=== PATIENT | male | born 1950 | race Two or more races ===

== ENCOUNTER 2024-08-09 00:10 | Inpatient (IN) | payer MEDICARE, MEDICAID, SELFPAY ==
[2024-08-09] VITALS (13 sets, daily range): BP systolic 118–179; BP diastolic 68–91; PULSE 59–87; RESP 13–22; TEMP 36–37.3; O2SAT 19–100; BMI 26.5; BMI 24.0
--- NOTE | 2024-08-09 00:40 | PD.EDURI ---
Upper Respiratory Inf. RME/HPI General Chief Complaint: Flu Like Symptoms Stated Complaint: FEVER, NAUSEA, VOMITING Time Seen by Provider: 08/09/24 00:39 Source: patient Arrival date/time: 08/09/24 00:10 Mode of arrival: EMS Limitations: other (Aphasia) RME / HPI RME / HPI Narrative: DR. MUNOZ MAIN ED EVALUATION: 74 year-old male with history of Parkinson's disease, multiple sclerosis, major relation, type 2 diabetes, hypertension, BPH, GERD, vascular dementia, nonverbal, G-tube history presents to the Emergency Department [facility] with complaints of increase in phlegm, increasing respiratory distress, information obtained from EMS report. Patient cannot talk. Patient's blood pressure is 135/96. Temperature of 98.2, 94% on room air for referral from the senior care prior to arrival. Associated symptoms include warm to touch. Patient is nonverbal. PMH: DNR,Parkinson's disease, multiple sclerosis, major relation, type 2 diabetes, hypertension, BPH, GERD, vascular dementia, nonverbal, G-tube history PSH: G-tube placement. Social history: Patient lives in a SNF. Current medications: Reviewed please see nurses notes. PCP is at SNF. Related Data Home Medications ?Medication ?Instructions ?Recorded ?Confirmed amlodipine 10 mg tablet (Norvasc) 10 mg feeding tube QDAY #0 tabs 09/18/13 08/09/24 gabapentin 300 mg capsule 300 mg feeding tube TID #0 caps 04/01/17 08/09/24 carbidopa 10 mg-levodopa 100 mg 1 tab feeding tube BID 02/15/18 08/09/24 tablet (Sinemet) terazosin 2 mg capsule 2 mg feeding tube HS 02/15/18 08/09/24 melatonin 3 mg tablet 3 mg feeding tube HS 03/13/18 08/09/24 oxybutynin chloride 5 mg tablet 5 mg feeding tube QDAY 03/13/18 08/09/24 acetaminophen 325 mg tablet 650 mg feeding tube Q6H PRN pain 08/09/24 08/09/24 aspirin 81 mg chewable tablet 81 mg feeding tube QDAY 08/09/24 08/09/24 bisacodyl 10 mg rectal suppository 10 mg ME QDAY PRN constipation 08/09/24 08/09/24 (Dulcolax (bisacodyl)) donepezil 5 mg tablet 5 mg feeding tube HS 08/09/24 08/09/24 magnesium hydroxide 400 mg/5 mL 30 ml feeding tube Q48H PRN 08/09/24 08/09/24 oral suspension (Dulcolax constipation (magnesium hydroxide)) metformin 750 mg tablet,extended 750 mg PO BID 08/09/24 08/09/24 release 24 hr metoclopramide HCl 5 mg/5 mL oral 10 mg feeding tube BID 08/09/24 08/09/24 solution Held on 08/10/24. Instructions: Resume on 08/17/24. multivitamin with minerals 1 cap PO QDAY 08/09/24 08/09/24 phenytoin 50 mg chewable tablet 100 mg G-tube Q8H 08/09/24 08/09/24 sodium phosphates 19 gram-7 118 ml ME Q8HR PRN constipation 08/09/24 08/09/24 gram/118 mL enema (Enema) Previous Rx's ?Medication ?Instructions ?Recorded blood-glucose meter #1 ea 10/26/22 lancets (Accu-Chek Softclix #100 ea 10/26/22 Lancets) amoxicillin 600 mg-potassium 7.3 ml PO BID 5 days #73 mL 08/10/24 clavulanate 42.9 mg/5 mL oral suspension (Augmentin ES-) ferrous sulfate 325 mg (65 mg 325 mg PO QOD 30 days #15 tabs 08/10/24 iron) tablet,delayed release insulin glargine 100 unit/mL (3 36 unit (0.36 mL) subcut HS 08/10/24 mL) subcutaneous pen (Basaglar Hyperglycemia #15 mL KwikPen U-100 Insulin) oseltamivir 75 mg capsule 75 mg G-tube BID 4 days #8 caps 08/10/24 Allergies Allergy/AdvReac Type Severity Reaction Status Date / Time No Known Drug Allergies Allergy Unknown Verified 03/13/18 10:36 Review of Systems Review of Systems ROS Unobtainable: unobtainable due to medical condition Narrative Review of Systems: Patient is nonverbal. Past Medical History Past Medical History NEUROLOGIC: Positive Neurological Disorders, Cerebrovascular Accident, Dementia, Parkinson's Disease, Seizures and Peripheral Neuropathy CARDIAC: Positive Cardiac Disorders, Cardiac Arrhythmia, Atrial Fibrillation and Hypertension RESPIRATORY: Positive Pneumonia GENITOURINARY: Positive Genitourinary Disorders and Benign Prostatic Hyperplasia ENDOCRINE: Positive Endocrine Disorders and Diabetes Mellitus Type 2 PSYCHO/SOCIAL: Positive Depression and Anxiety OTHER HISTORY: Positive Hospitalization Family History FAMILY HISTORY: Negative Family Psychiatric Problems, Family Respiratory Disorders, Family Cardiac Disorders, Family Gastrointestinal Problems, Family Cancer, Family Surgery or Family Anesthesia Reaction Surgical History SURGICAL: Positive Abdominal Surgery; Negative Cardiac Surgery, Endocrine Surgery, Ear Surgery, Tympanostomy Tube, Eye Surgery, Nose Surgery, Oral Surgery, Tonsillectomy, Adenoidectomy, Cochlear Implant, Nephrectomy, Joint Replacement or Neurologic Surgery Social History SMOKING STATUS: Never smoker SECOND HAND EXPOSURE: No SUBSTANCE USE: does not use ALCOHOL: Never ED Exam Narrative Physical exam: Patient sitting up in the bed. Looking around the room. Nasal cannula in place. Coughing with thick clear sputum. General Limitations: Present other (Aphasia) General appearance: Present alert Head Head exam: Present normocephalic Eye Eye exam: Present PERRL; Absent EOMI or scleral icterus Neck Neck exam: Present normal inspection, full ROM and other Chest Chest inspection: Absent tenderness Respiratory Respiratory exam: Present respiratory distress, accessory muscle use and other (Bilateral rhonchi.); Absent stridor Cardiovascular Cardiovascular exam: Present regular rate Abdominal Exam Abdominal exam: Present soft; Absent distention, tenderness, guarding or rebound Neurological Exam Neurological exam: Present other (Sitting up in bed awake.) Skin Skin exam: Present warm; Absent rash Course Quality Measures none Orders Category Date Time Status Bedside COVID-19 Antigen Test NOW Care 08/09/24 00:45 Completed Bedside Influenza A&B Antigen Test NOW Care 08/09/24 00:50 Completed COVID-19 Screening Questionnaire NOW Care 08/09/24 02:44 Completed Decision to Admit X1 Care 08/09/24 02:44 Completed EKG (ED ONLY) *Do not use* NOW Care 08/09/24 00:24 Completed CXRP [XR chest 1V portable] Stat Exams 08/09/24 00:45 Completed EKG (ED Only) Stat Exams 08/09/24 00:24 Ordered CBC Stat Lab 08/09/24 00:59 Completed CMP [Comprehensive Metabolic Panel] Stat Lab 08/09/24 00:59 Completed Troponin I Stat Lab 08/09/24 00:59 Completed Vital Signs Vital signs: Vital Signs Temperature 99.1 F 08/09/24 00:21 Pulse Rate 79 08/09/24 00:21 Respiratory Rate 14 08/09/24 00:21 Blood Pressure 158/85 H 08/09/24 00:21 Pulse Oximetry (%) 95 08/09/24 00:21 Oxygen Delivery Method Nasal Cannula 08/09/24 00:21 Oxygen Flow Rate 4 08/09/24 00:21 Procedures -ED EKG Interpretation #1: Date of EK08/09/24 Time of EK:24 Rate: 76 Interpretation: Interpreted by me Additional EKG comment: Left axis deviation, LVH. Nonspecific ST-T wave changes V5 V6. Impression nonspecific ST-T wave changes. Upper Respiratory Infection MDM Narrative MDM Narrative:: -Evaluation at approximately 0047 96% on 4 L. -Chest x-ray for inspiratory effort. No obvious pneumonia but the patient is rotated. Patient data External records reviewed:: Skilled Nursing records (Patient comes from her work. Nonverbal, DNR) Clinical information provided by:: none (Nurses notes.) Social determinants that could affect healthcare access:: housing (DNR, senior care yeah but nothing and then about probably) Patient has the following chronic illnesses:: Parkinson's disease, multiple sclerosis, major relation, type 2 diabetes, hypertension, BPH, GERD, vascular dementia, nonverbal, G-tube history. History of atrial fibrillation, chronically was history, CVA. How is presenting disease/condition affected by chronic disease/condition?: exacerbated by Evaluation data The following diagnostics were reviewed and interpreted by me:: lab results, radiology exam(s) and EKG tracing(s) Lab and/or radiology exams considered but not ordered:: none Interpretation Summary: Procedure(s): XR chest 1V portable Accession Number(s): [id number] cc: Benson Stringer MD; Ranulfo Marte MD; Lyric Munoz MD~ Examination: AP chest single view TECHNIQUE: AP portable semiupright chest single view Examination time: August 09, 2024, 0052 hours Comparison October 20, 2022 INDICATIONS: Cough and congestion and shortness of breath today. FINDINGS: Early pneumonia left base. Normal heart size Ectatic thoracic aorta No pulmonary edema Moderate osteopenia IMPRESSION: Early pneumonia left base Dictated By: Ranulfo Marte MD Medications / Prescriptions Medications or Prescriptions considered but not ordered:: none Medication administrations:: Medication Administration History Discontinued Medications Acetaminophen (Acetaminophen 325 Mg Tablet) 650 mg PO Q6H PRN PRN Reason: Fever >101.5 Stop: 09/08/24 03:41 Albuterol/Ipratropium (Albuterol/Ipratropium (Duoneb) Rt Amberly 3 Ml Nebu) 3 ml INH Q6HRRT MANJU Stop: 09/08/24 03:44 Last Admin: 08/10/24 11:19 Dose: 3 ml Documented By: Admin: 08/10/24 06:48 Dose: 3 ml Documented By: Admin: 08/10/24 01:28 Dose: 3 ml Documented By: Admin: 08/09/24 19:10 Dose: 3 ml Documented By: Admin: 08/09/24 19:06 Dose: Not Given Documented By: CARIDAD Non-Admin Reason: Other, see note Comments: RT was busy Admin: 08/09/24 16:52 Dose: Not Given Documented By: CONSTANZA Non-Admin Reason: Other, see note Comments: RT unaware Admin: 08/09/24 16:52 Dose: Not Given Documented By: CONSTANZA Non-Admin Reason: Other, see note Comments: RT unware Amlodipine Besylate (Amlodipine Besylate 5 Mg Tablet) 5 mg GT QDAY [facility] Stop: 09/08/24 08:59 Last Admin: 08/09/24 09:29 Dose: 5 mg Documented By: ME Amlodipine Besylate (Amlodipine Besylate 5 Mg Tablet) 10 mg GT QDAY MANJU Stop: 09/09/24 08:59 Last Admin: 08/10/24 09:39 Dose: 10 mg Documented By: ES Aspirin (Aspirin 81 Mg Chew) 81 mg GT QDAY [facility] Stop: 09/08/24 13:44 Last Admin: 08/10/24 09:38 Dose: 81 mg Documented By: Admin: 08/09/24 15:41 Dose: 81 mg Documented By: ME Carbidopa/Levodopa (Carbidopa/Levodopa 10/100 Mg Tablet) 1 tab GT BID [facility] Stop: 09/08/24 08:59 Last Admin: 08/10/24 09:39 Dose: 1 tab Documented By: Admin: 08/09/24 21:55 Dose: 1 tab Documented By: Admin: 08/09/24 11:22 Dose: 1 tab Documented By: ME Dextrose (Dextrose 50%-Water Inj 50 Ml Syringe) 25 ml IV Q15MIN PRN PRN Reason: BG 50-70 responsive npo pt Stop: 09/08/24 08:14 Dextrose (Dextrose 50%-Water Inj 50 Ml Syringe) 50 ml IV Q15MIN PRN PRN Reason: BG <50 OR BG <70 & pt unresponsive Stop: 09/08/24 08:14 Donepezil HCl (Donepezil Hcl 5 Mg Tablet) 5 mg GT HS MANJU Stop: 09/08/24 20:59 Last Admin: 08/09/24 21:55 Dose: 5 mg Documented By: RE Enoxaparin Sodium (Enoxaparin Sod Inj 40 Mg/0.4 Ml Syringe) 40 mg SC QDAY MANJU Stop: 08/23/24 08:59 Last Admin: 08/10/24 09:38 Dose: 40 mg Documented By: Admin: 08/09/24 09:28 Dose: 40 mg Documented By: ME Ferrous Sulfate (Ferrous Sulf 325 Mg Tablet) 325 mg PO QOD [facility] Stop: 09/08/24 04:14 Last Admin: 08/09/24 06:23 Dose: 325 mg Documented By: DELANO Folic Acid (Folic Acid 1 Mg Tablet) 1 mg GT QDAY MANJU Stop: 09/08/24 08:59 Last Admin: 08/10/24 09:39 Dose: 1 mg Documented By: Admin: 08/09/24 09:29 Dose: 1 mg Documented By: ME Gabapentin (Gabapentin 300 Mg Capsule) 300 mg GT TID MANJU Stop: 09/08/24 05:59 Last Admin: 08/10/24 14:42 Dose: 300 mg Documented By: Admin: 08/10/24 05:49 Dose: 300 mg Documented By: Admin: 08/09/24 21:55 Dose: 300 mg Documented By: Admin: 08/09/24 13:22 Dose: 300 mg Documented By: Admin: 08/09/24 06:23 Dose: 300 mg Documented By: DELANO Glucagon (Glucagon Inj 1 Mg Vial) 1 mg IM Q15MIN PRN PRN Reason: BG <70, and no IV access Hydralazine HCl (Hydralazine Inj 20 Mg/Ml Vial) 10 mg IV X1 ONE Stop: 08/09/24 15:49 Last Admin: 08/09/24 15:58 Dose: 10 mg Documented By: ME Azithromycin 500 mg/ Sodium (Chloride) 250 mls @ 250 mls/hr IV QDAY MANJU Stop: 08/17/24 08:59 Last Admin: 08/10/24 10:27 Dose: 250 mls/hr Documented By: ES Ceftriaxone Sodium/Dextrose (Rocephin/D5w 1gm Iv Premix) 1 gm in 50 mls @ 100 mls/hr IV QDAY MANJU Stop: 08/16/24 03:59 Last Admin: 08/10/24 09:39 Dose: 100 mls/hr Documented By: Infusion: 08/09/24 05:03 Dose: Infused Documented By: Admin: 08/09/24 04:33 Dose: 100 mls/hr Documented By: DIETER Magnesium Sulfate (Magnesium Sulfate Ivpb) 2 gm in 50 mls @ 25 mls/hr IV X1 ONE Stop: 08/09/24 05:51 Last Admin: 08/09/24 06:23 Dose: 25 mls/hr Documented By: DELANO Azithromycin 500 mg/ Sodium (Chloride) 250 mls @ 250 mls/hr IV X1 ONE Stop: 08/09/24 05:14 Last Admin: 08/09/24 04:35 Dose: 250 mls/hr Documented By: DIETER Insulin Human Lispro (Insulin Lispro (Admelog) 1 Unit/0.01 Ml Unit) 0 unit SC Q6HR [facility]; Protocol Stop: 09/08/24 08:14 Last Admin: 08/10/24 17:42 Dose: 1 unit Documented By: ES Co-signed By: EULALIA Admin: 08/10/24 11:24 Dose: Not Given Documented By: ES Non-Admin Reason: Per Protocol Admin: 08/10/24 06:32 Dose: Not Given Documented By: RE Non-Admin Reason: Per Protocol Admin: 08/10/24 00:02 Dose: 1 unit Documented By: RE Co-signed By: BF Admin: 08/09/24 17:10 Dose: 2 unit Documented By: SHAQUILLE Co-signed By: SUDHAKAR Admin: 08/09/24 11:20 Dose: Not Given Documented By: ME Non-Admin Reason: NPO Admin: 08/09/24 09:27 Dose: Not Given Documented By: ME Non-Admin Reason: Per Protocol Melatonin (Melatonin 3 Mg Tablet) 3 mg GT HS [facility] Stop: 09/08/24 20:59 Last Admin: 08/09/24 21:56 Dose: 3 mg Documented By: RE Oseltamivir Phosphate (Oseltamivir 75 Mg Capsule) 75 mg GT BID [facility] Stop: 08/16/24 04:59 Last Admin: 08/10/24 09:39 Dose: 75 mg Documented By: Admin: 08/09/24 21:55 Dose: 75 mg Documented By: Admin: 08/09/24 06:23 Dose: 75 mg Documented By: DELANO Oxybutynin Chloride (Oxybutynin Chlor 5 Mg Tablet) 5 mg GT QDAY [facility] Stop: 09/08/24 08:59 Last Admin: 08/10/24 09:39 Dose: 5 mg Documented By: Admin: 08/09/24 09:29 Dose: 5 mg Documented By: ME Phenytoin (Phenytoin 100 Mg/4 Ml Udc) 100 mg GT Q8HR [facility] Stop: 09/08/24 08:14 Last Admin: 08/10/24 14:42 Dose: 100 mg Documented By: Admin: 08/10/24 05:49 Dose: 100 mg Documented By: Admin: 08/09/24 21:55 Dose: 100 mg Documented By: Admin: 08/09/24 13:22 Dose: 100 mg Documented By: Admin: 08/09/24 09:28 Dose: 100 mg Documented By: SHAQUILLE Potassium Chloride (Potassium Chloride 10% 20 Meq/15 Ml Udc) 40 meq GT X1 ONE Stop: 08/09/24 03:43 Last Admin: 08/09/24 04:33 Dose: 40 meq Documented By: EF Potassium Chloride (Potassium Chloride 10% 20 Meq/15 Ml Udc) 40 meq GT X1 ONE Stop: 08/09/24 06:31 Last Admin: 08/09/24 06:48 Dose: Not Given Documented By: DELANO Non-Admin Reason: Duplicate Medication on eMAR Potassium Chloride (Potassium Chloride 10% 20 Meq/15 Ml Udc) 40 meq GT X1 ONE Stop: 08/10/24 08:27 Last Admin: 08/10/24 09:43 Dose: 40 meq Documented By: ES Terazosin HCl (Terazosin Hcl 1 Mg Capsule) 2 mg GT QDAY [facility] Stop: 09/08/24 08:59 Last Admin: 08/10/24 09:38 Dose: 2 mg Documented By: Admin: 08/09/24 09:28 Dose: 2 mg Documented By: ME see above Consultations Consultation(s) initiated? (list below): Yes Consultation #1 (Physician, Specialty, Details): Discussed test HPI, PMHx, lab, radiology results and/or management with hospitalist. Will admit for further evaluation and management. Accepts patient for admission. Time: 03:42 Diagnosis Upper Respiratory Differential Diagnosis: upper respiratory infection, viral infection and influenza Most likely diagnosis given after review of the tests above:: Acute respiratory distress Admission Indicated Admission indicated?: indicated Admission Request Was there a request for admission?: Yes Admission Attestation Admission request attestation: Discussed case with [] from Hospitalist service regarding admission. Discussed patients ED course, exam findings, labs, and radiology results. The Hospitalist [agrees,declines] to accept the patient for admission. Disposition Plan Disposition Plan: Admit Discharge Plan Plan Patient Disposition: Admit Acute Care w/in Hospital Patient condition on transfer: Stable Problem List Clinical Impression: Acute respiratory distress Patient/Caregiver Discharge Instructions Other Activity Instructions:: Continue Augmentin for five more days to complete anibioitic therapy for pneumonia Continue Tamiflu for four more days and iron tablets every other day for iron deficiency anemia. Hold Metoclopramide, follow up with PCP before resuming. Continue all other home medications. Follow up with PCP in 1 week. Return to ED if symptoms worsen. Diet Instructions: Tube Feeding
--- NOTE | 2024-08-09 00:45 | XR_ITS ---
Examination: AP chest single view TECHNIQUE: AP portable semiupright chest single view Examination time: August 09, 2024, 0052 hours Comparison October 20, 2022 INDICATIONS: Cough and congestion and shortness of breath today. FINDINGS: Early pneumonia left base. Normal heart size Ectatic thoracic aorta No pulmonary edema Moderate osteopenia IMPRESSION: Early pneumonia left base
[2024-08-09 01:27] LABS: Basophils % (Auto) 0 % (0-2.5); Eosinophils # (Auto) 0.2 Thou/mm3 (0.0-0.5); Eosinophils % (Auto) 2 % (0-10); Hematocrit 39.4 % (41.0-53.0); Hemoglobin 13.4 g/dL (13.5-16.0); Immature Granulocytes % (Auto) 1 % (0-0); Immature Granulocytes Auto 0.07 Thou/mm3 (0.00-0.00); Lymphocytes # (Auto) 1.6 Thou/mm3 (1.0-4.8); Lymphocytes % (Auto) 16 % (10-50); Mean Corpuscular Hemoglobin 29.3 pg (25.0-35.0); Mean Corpuscular Volume 86 fL (80-100); Monocytes % (Auto) 10 % (0-12); Neutrophils % (Auto) 71 % (37-80); Nucleated Red Blood Cell % 0 /100 WBC (0); Platelet Count 348 Thou/mm3 (140-440); Red Blood Count 4.58 Miln/mm3 (4.50-5.90)
[2024-08-09 01:52] LABS: Alanine Aminotransferase 63 U/L (10-49); Albumin/Globulin Ratio 1.1 (1.2-2.2); Alkaline Phosphatase 213 U/L (46-116); Anion Gap 8 (7-16); Aspartate Amino Transferase 38 U/L (0-34); BUN/Creatinine Ratio 30 Ratio (12-20); Bilirubin,Total 0.3 mg/dL (0.3-1.2); Blood Urea Nitrogen 18 mg/dL (9-23); Carbon Dioxide 29.1 mMol/L (20.0-31.0); Chloride 103 mMol/L (98-107); Creatinine (Component) 0.6 mg/dL (0.6-1.3); Estimated Creatinine Clearance 84.3 mL/min (>60); Globulin 3.5 gm/dL (2.3-3.5); Glucose 124 mg/dL (74-106); Osmolality,Calculated 282 (275-295); Potassium 3.3 mMol/L (3.4-5.1); Sodium 140 mMol/L (136-145); Total Protein 7.5 gm/dL (5.7-8.2); Troponin I 0.041 ng/mL (0.0-0.045); eGFR > 60 See Note
--- NOTE | 2024-08-09 04:14 | ESHP_ITS ---
Documentation for date of: 08/09/24 [facility] History of Present Illness History of present illness: The patient is a 74-year-old male with significant past medical history of Parkinson's disease, hypertension, diabetes mellitus type 2, seizure disorder, multiple CVAs, A-fib, depression, on chronic G-tube was brought in by ambulance to ED from [facility] with chief complaint of worsening respiratory distress, and phlegm production for past couple of days. Patient is nonverbal at baseline, and history is obtained from chart review and interviewing the patient's son at bedside. In the ED his vitals were significant for BP 158/85, saturating 95% on 4 L NC. Labs revealed hemoglobin 13.4, RWD 47.0, potassium 3.3, blood sugar 124, AST/ALT/ALP 38/63/213, troponin 0.041 and CXR as interpreted by me was nonsignificant for pneumonia. The patient was positive for influenza A. PMH: As mentioned above SHX: Abdominal surgery Social history: Unknown if ever smoked, unable to obtain further social history. Medications: Amlodipine, carbidopa-levodopa, ferrous sulfate, folic acid, gabapentin, melatonin, metformin, oxybutynin chloride, terazosin, to be reconciled Allergies: No known drug allergies The patient was given DuoNeb INH, and admitted for further management of acute hypoxic respiratory failure secondary to influenza A pneumonia. Review of Systems Review of Systems ROS Unobtainable: unobtainable due to mental status Exam Vital Signs Temp Pulse Resp BP Pulse Ox O2 Del Method O2 Flow Rate 99.1 F 59 L 14 139/68 H 100 Nasal Cannula 4 08/09/24 00:21 08/09/24 04:01 08/09/24 04:01 08/09/24 03:27 08/09/24 04:01 08/09/24 03:27 08/09/24 04:01 Narrative Exam General: Elderly, nonverbal gentleman, no acute distress, spontaneously opening eyes HEENT: Moist mucous membranes, oropharynx clear Neck: Supple, No masses, No JVD CVS: S1S2 Regular rate and rhythm, No murmurs, rubs or gallops Lungs: Distant breath sounds throughout the lung field, no wheeze no rhonchi Abd: Soft, NT/ND, +BS, no organomegaly, PEG tube under clean dressing Ext: No edema, warm and well perfused Skin: No rash Psych: Unobtainable Results: Labs 08/09/24 00:59 08/09/24 00:59 Labs: Short CBC 08/09/24 Range/Units 00:59 WBC 10.0 (3.8-10.6) Thou/mm3 Hgb 13.4 L (13.5-16.0) g/dL Hct 39.4 L (41.0-53.0) % Plt Count 348 (140-440) Thou/mm3 BMP 08/09/24 00:59 Sodium 140 Potassium 3.3 L Chloride 103 Carbon Dioxide 29.1 BUN 18 Creatinine 0.6 Glucose 124 H Calcium 9.0 Cardiac Enzymes 08/09/24 Range/Units 00:59 Troponin I 0.041 (0.0-0.045) ng/mL Liver Function 08/09/24 Range/Units 00:59 Total Bilirubin 0.3 (0.3-1.2) mg/dL AST 38 H (0-34) U/L ALT 63 H (10-49) U/L Alkaline Phosphatase 213 H (46-116) U/L Albumin 4.0 (3.4-4.8) gm/dL Quality Measures Quality Measures VTE prophylaxis Advance care planning discussed with:: child Medications Home Medications and Allergies Home Medications ?Medication ?Instructions ?Recorded ?Confirmed ?Type amlodipine 10 mg tablet (Norvasc) 10 mg feeding tube Q DAY #0 tabs 09/18/13 03/25/22 History folic acid 1 mg tablet 1 mg feeding tube QDAY #0 ta bs 11/24/15 03/25/22 History gabapentin 300 mg capsule 300 mg feeding tube TID #0 c aps 04/01/17 03/25/22 History carbidopa 10 mg-levodopa 100 mg 1 tab feeding tube BID 02/15/18 03/25/22 History tablet (Sinemet) terazosin 2 mg capsule 2 mg feeding tube QDAY 02/1503/25/22 History melatonin 3 mg tablet 3 mg feeding tube HS 8 03/25/22 History oxybutynin chloride 5 mg tablet 5 mg feeding tube QDAY 03/13/18 03/25/22 History phenytoin 125 mg/5 mL oral 300 mg G-tube HS 03/13/18 1 05/26/21 History suspension (Dilantin-125) Allergies Allergy/AdvReac Type Severity Reaction Status Date / Time No Known Drug Allergies Allergy Unknown Verified 03/13/18 10:36 Visit Medications Acetaminophen (Acetaminophen 325 Mg Tablet) 650 mg PO Q6H PRN PRN Reason: Fever >101.5 Stop: 09/08/24 03:41 Albuterol/Ipratropium (Albuterol/Ipratropium (Duoneb) Rt Amberly 3 Ml Nebu) 3 ml INH Q6HRRT MANJU Stop: 09/08/24 03:44 Amlodipine Besylate (Amlodipine Besylate 5 Mg Tablet) 5 mg GT QDAY MANJU Stop: 09/08/24 08:59 Carbidopa/Levodopa (Carbidopa/Levodopa 10/100 Mg Tablet) 1 tab GT BID MANJU Stop: 09/08/24 08:59 Enoxaparin Sodium (Enoxaparin Sod Inj 40 Mg/0.4 Ml Syringe) 40 mg SC QDAY MANJU Stop: 08/23/24 08:59 Ferrous Sulfate (Ferrous Sulf 325 Mg Tablet) 325 mg PO QOD MANJU Stop: 09/08/24 04:14 Folic Acid (Folic Acid 1 Mg Tablet) 1 mg GT QDAY MANJU Stop: 09/08/24 08:59 Gabapentin (Gabapentin 300 Mg Capsule) 300 mg GT TID MANJU Stop: 09/08/24 05:59 Azithromycin 500 mg/ Sodium (Chloride) 250 mls @ 250 mls/hr IV QDAY MANJU Stop: 08/17/24 08:59 Ceftriaxone Sodium/Dextrose (Rocephin/D5w 1gm Iv Premix) 50 mls @ 100 mls/hr IV Q24H MANJU Stop: 08/16/24 03:59 Magnesium Sulfate (Magnesium Sulfate Ivpb) 2 gm in 50 mls @ 25 mls/hr IV X1 ONE Stop: 08/09/24 05:51 Azithromycin 500 mg/ Sodium (Chloride) 250 mls @ 250 mls/hr IV X1 ONE Stop: 08/09/24 05:14 Melatonin (Melatonin 3 Mg Tablet) 3 mg GT HS MANJU Stop: 09/08/24 20:59 Oseltamivir Phosphate (Oseltamivir 75 Mg Capsule) 75 mg PO BID MANJU Stop: 08/16/24 03:49 Potassium Chloride (Potassium Chloride 10% 20 Meq/15 Ml Udc) 40 meq GT X1 ONE Stop: 08/09/24 03:43 Potassium Chloride (Potassium Chloride 10% 20 Meq/15 Ml Udc) 40 meq GT X1 ONE Stop: 08/09/24 06:31 Terazosin HCl (Terazosin Hcl 1 Mg Capsule) 2 mg PO QDAY MANJU Stop: 09/08/24 08:59 Assessment & Plan Plan The patient is a 74-year-old male with significant past medical history of Parkinson's disease, hypertension, diabetes mellitus type 2, seizure disorder, multiple CVAs, A-fib, depression, on chronic G-tube was brought in by ambulance to ED from [facility] with chief complaint of worsening respiratory distress, and phlegm production for past couple of days. The patient was given DuoNeb INH, and admitted for further management of acute hypoxic respiratory failure secondary to influenza A pneumonia. #Acute hypoxic respiratory failure 05/16 #Influenza A pneumonia Patient presented with chief complaint of worsening respiratory distress, and increasing phlegm production for past couple of days. Patient was requiring 4 L oxygen via NC for oxygen saturation 95%. CXR as interpreted by me was nonsignificant for pneumonia. The patient was positive for influenza A - Started on oseltamivir 75 Mg twice daily - Started on azithromycin 500 Mg daily and Rocephin 1 g IV daily - DuoNeb every 6 hourly as scheduled - Oxygen as needed, taper down as tolerated - Monitor closely #Parkinson's disease #History of multiple CVAs #Depression - Started on home medications carbidopa-levodopa twice daily - Started on gabapentin 300 Mg 3 times daily - Continue feeding via G-tube, registered dietitian consultation done #Hypertension Patient is on home medicine amlodipine 10 Mg daily - Started on amlodipine 5 Mg daily, may increase the dose to 10 Mg daily as needed #Diabetes mellitus type 2 - Ordered A1c - Continue to monitor blood sugar for now, may consider adding sliding scale insulin #Atrial fibrillation - Monitor closely, did not see any medication for rate control or anticoagulation - Reconcile home medications #History of seizure disorder Unable to find any home medications - Reconcile home medications Health maintenance: Dispo: [facility] for further management of acute hypoxic respiratory failure secondary to influenza A pneumonia DVT prophylaxis: Enoxaparin 40 Mg daily subcu Diet: N.p.o. for now, restart feeding via G-tube after dietary consultation CODE STATUS: DNR The patient's management plan was discussed with my attending physician MD Rajan Dickinson MD, PGY2 Attending Provider Attestation/Addendum I attest that I was physically present for the evaluation, physical examination, lab and imaging review of the patient with the residents. I discussed the case with the residents and agree with the findings and plans of care as documented above. Patient is a 74 years old male with past medical history of Parkinson's disease, hypertension, diabetes mellitus, seizure disorder, multiple CVAs, A-fib, depression, status post PEG tube who presented to the ED from SNF with complaint of shortness of breath and cough. Patient is nonverbal at baseline. In the ED, his blood pressure was 158/85, saturating at 96% on 4 L nasal cannula. Lab results are significant for potassium of 3.3, ALP 213, ALT 63. He is positive for influenza A. Chest x-ray does not show any infiltrates. Has a decreased breath sounds bilaterally on auscultation. We will admit the patient for management of acute hypoxic respiratory failure secondary to influenza and pneumonia. We will start him on oseltamivir, DuoNebs and oxygen supplementation. We will also add azithromycin and Rocephin for possible bacterial infection. Started on insulin regimen for diabetes, resumed home amlodipine for hypertension,. Continues to be on A-fib, rate controlled. He is not on anticoagulation as per his medication from last visit. We will continue to monitor closely. Shira Dominguez MD
[2024-08-09] MEDS: POTASSIUM CHLORIDE 10% 20 MEQ/15 ML UDC 40 MEQ GT (04:33)
[2024-08-09] MEDS: cefTRIAXone/D5w 1gm IV premix 1 GM/50 ML BAG IV (04:33)
[2024-08-09] MEDS: AZITHROMYCIN INJ 500 MG in SODIUM CHLORIDE 0.9% 250 ML 250 ML 250 MG IV (04:35)
[2024-08-09 06:02] LABS: Basophils % (Auto) 0 % (0-2.5); Eosinophils # (Auto) 0.1 Thou/mm3 (0.0-0.5); Eosinophils % (Auto) 2 % (0-10); Hematocrit 39.9 % (41.0-53.0); Hemoglobin 13.7 g/dL (13.5-16.0); Immature Granulocytes % (Auto) 1 % (0-0); Immature Granulocytes Auto 0.05 Thou/mm3 (0.00-0.00); Lymphocytes # (Auto) 1.6 Thou/mm3 (1.0-4.8); Lymphocytes % (Auto) 19 % (10-50); Mean Corpuscular HGB Conc 34.3 g/dl (31.0-37.0); Mean Corpuscular Volume 87 fL (80-100); Monocytes % (Auto) 12 % (0-12); Neutrophils # (Auto) 5.4 Thou/mm3 (1.8-7.7); Neutrophils % (Auto) 66 % (37-80); Nucleated Red Blood Cell % 0 /100 WBC (0); Platelet Count 287 Thou/mm3 (140-440); RDW Standard Deviation 48.2 fL (35.1-43.9); Red Blood Count 4.57 Miln/mm3 (4.50-5.90); White Blood Count 8.2 Thou/mm3 (3.8-10.6)
[2024-08-09 06:05] LABS: Alanine Aminotransferase 60 U/L (10-49); Albumin, Serum 3.7 gm/dL (3.4-4.8); Albumin/Globulin Ratio 1.2 (1.2-2.2); Alkaline Phosphatase 197 U/L (46-116); Anion Gap 9 (7-16); Aspartate Amino Transferase 42 U/L (0-34); BUN/Creatinine Ratio 30 Ratio (12-20); Bilirubin,Total 0.2 mg/dL (0.3-1.2); Blood Urea Nitrogen 18 mg/dL (9-23); Calcium 8.6 mg/dL (8.3-10.6); Calcium (Corrected) 8.8 mg/dL (8.5-10.1); Carbon Dioxide 29.3 mMol/L (20.0-31.0); Cardiac Risk Estimate 3.3 RATIO (4.0-6.7); Chloride 106 mMol/L (98-107); Cholesterol 177 mg/dL (132-200); Creatinine (Component) 0.6 mg/dL (0.6-1.3); Estimated Creatinine Clearance 84.3 mL/min (>60); Globulin 3.2 gm/dL (2.3-3.5); Glucose 109 mg/dL (74-106); HDL Cholesterol 54 mg/dL (40-60); LDL Cholesterol,Calculated 105 mg/dL (0-130); Magnesium 1.8 mg/dL (1.6-2.6); Osmolality,Calculated 289 (275-295); Potassium 3.6 mMol/L (3.4-5.1); Sodium 144 mMol/L (136-145); Thyroid Stimulating Hormone 3.97 uIU/mL (0.55-4.78); Total Protein 6.9 gm/dL (5.7-8.2); Triglycerides 90 mg/dL (30-150); eGFR > 60 See Note
[2024-08-09] MEDS: GABAPENTIN 300 MG CAPSULE GT ×3 (06:23→21:55)
[2024-08-09] MEDS: OSELTAMIVIR 75 MG CAPSULE GT ×2 (06:23→21:55)
[2024-08-09] MEDS: FERROUS SULF 325 MG TABLET PO (06:23)
[2024-08-09] MEDS: Magnesium Sulfate 2 GM Ivpb 2 GM/50 ML BAG IV (06:23)
[2024-08-09 06:59] LABS: Glucose Estimated Average 163 mg/dL (80-131); Hemoglobin A1C 7.3 % Hgb (4.8-6.0)
--- NOTE | 2024-08-09 08:55 | PC.SS ---
Follow up note: On IV antibiotic. On Tamiflu.
[2024-08-09] MEDS: PHENYTOIN 100 MG/4 ML UDC GT ×3 (09:28→21:55)
[2024-08-09] MEDS: TERAZOSIN HCL 1 MG CAPSULE 2 MG GT (09:28)
[2024-08-09] MEDS: ENOXAPARIN SOD INJ 40 MG/0.4 ML SYRINGE SC (09:28)
[2024-08-09] MEDS: FOLIC ACID 1 MG TABLET GT (09:29)
[2024-08-09] MEDS: amLODIPine BESYLATE 5 MG TABLET GT (09:29)
[2024-08-09] MEDS: OXYBUTYNIN CHLOR 5 MG TABLET GT (09:29)
--- NOTE | 2024-08-09 10:36 | PC.DIETICIAN ---
Nutrition prescription Glucerna 1.2 at 20 ml/hr via PEG tube by pump. Advance 10 ml every 8 hrs to goal rate of 85 ml/hr x 18 hrs. If no IV fluids, water flushes of 35 ml/hr (or per MD). -Hold TF for one hour before and after carbidopa-levodopa and/or phenytoin administration-
--- NOTE | 2024-08-09 10:40 | EVENTNT_ITS ---
Documentation for date of: 08/09/24 Event Note Event Note: Mr. Cruz is a 74-year-old male with significant past medical history of Parkinson's disease, hypertension, diabetes mellitus type 2, seizure disorder, multiple CVAs, A-fib, depression, on chronic G-tube was brought in by ambulance to ED from [facility] with chief complaint of worsening respiratory distress, and phlegm production for past couple of days. Patient admitted overnight, patient is not on oxygen at baseline per son at bedside, currently requiring 2 L via nasal cannula. Patient is on IV antibiotics and Tamiflu in setting of underlying influenza pneumonia at the same time covering for possible superimposed bacterial pneumonia. Labs and vitals reviewed overnight, A1c 7.3, transaminitis noted with elevated ALT, does not have any abdominal pain currently. Patient will be started on tube feeds today per dietary recommendations. #Acute hypoxic respiratory failure secondary to #Influenza pneumonia #Early pneumonia left base - Continue oseltamivir 75 mg p.o. twice daily and azithromycin and Rocephin to cover for possible superimposed bacterial infection - DuoNebs every 6 hours - Wean off oxygen, SpO2 goal greater than 92 - Telemetry monitoring #Parkinson's disease #History of multiple CVAs #Depression - Continue home dose carbidopa levodopa - Resume home dose gabapentin - Resumed home dose donepezil -Resumed home dose melatonin - Will hold Reglan #Seizure disorder - Resumed home dose phenytoin - Seizure precautions - Aspiration precautions #Type 2 diabetes mellitus A1c 7.3, patient is on 36 units of glargine per home medications. As patient is n.p.o. currently, will hold glargine. - Sliding scale insulin - Fingerstick blood glucose goal 140-180 - Hypoglycemia protocol in place #Hypertension Patient is on home medicine amlodipine 10 Mg daily - Continue amlodipine 5 Mg daily, may increase the dose to 10 Mg daily as needed, blood pressure soft #Atrial fibrillation Patient not on any rate control medication or anticoagulation. Discharge summary from October 2022 shows atrial fibrillation with RVR which was resolved, no anticoagulation or rate control medication was started patient is on aspirin 81 mg daily. [id number] Score 6 points HASBLED Score 3 points - Telemetry monitoring - Monitor vitals closely - Will consider starting on anticoagulation considering high [id number] Score - Resume home dose aspirin #Iron deficiency anemia, by history Patient's ferrous sulfate home dose resumed Patient started on folic acid daily as well #Benign hypertrophy of prostate Resumed home dose of oxybutynin and terazosin #Status post PEG tube feeding Resumed tube feeds per dietary recommendations DVT prophylaxis: Lovenox GI prophylaxis: Not indicated, resumed tube feeds Diet: Tube feeds resumed Lines: Peripheral IV Code status: DNR Case discussed with Attending Dr. Kendall and Dr. Dowling PGY3. Chente Alcaraz PGY1 Disclaimer: This note was dictated by speech recognition. Minor errors in body mechanic apprentice may be present due to voice recognition software. I discussed with and supervised the program management intern physician who took care of this patient. I personally saw and examined the patient and discussed the assessment and plan with the entire medicine team, including my attending Dr. Enoch SHINE. I agree with the assessment and plan as documented above. Patient admitted overnight for AHRF secondary to pneumonia in the setting of influenza positivity. Patient currently being treated with Oseltamavir and IV antibiotics empirically ceftriaxone and azithromycin for prevention of a superimposed bacterial infection. Patient currently saturating well on 2 L/min of supplemental oxygen. Patient does not have a history of using any supplemental oxygen. Will continue to wean as able to tolerate. Resumed home antiseizure meds and Parkinson's meds. Will hold Reglan due to its antidopaminergic effect. Patient's history notable for atrial fibrillation however not on any anticoagulation or rate controlled medications. Abdulaziz Dowling M.D. Internal Medicine PGY-3
[2024-08-09] MEDS: CARBIDOPA/LEVODOPA 10/100 MG TABLET 1 TAB GT ×2 (11:22→21:55)
[2024-08-09] MEDS: ASPIRIN 81 MG CHEW GT (15:41)
[2024-08-09] MEDS: hydrALAZINE INJ 20 MG/ML VIAL 10 MG IV (15:58)
[2024-08-09] MEDS: INSULIN LISPRO (AdmeLOG) 1 UNIT/0.01 ML UNIT SC (17:10)
[2024-08-09] MEDS: ALBUTEROL/IPRATROPIUM (Duoneb) RT SOL 3 ML NEBU INH (19:10)
[2024-08-09] MEDS: DONEPEZIL HCL 5 MG TABLET GT (21:55)
[2024-08-09] MEDS: MELATONIN 3 MG TABLET GT (21:56)
[2024-08-10] VITALS (12 sets, daily range): BP systolic 108–125; BP diastolic 61–79; PULSE 45–105; RESP 15–20; TEMP 36.5–36.7; O2SAT 96–99
[2024-08-10] MEDS: INSULIN LISPRO (AdmeLOG) 1 UNIT/0.01 ML UNIT SC ×2 (00:02→17:42)
[2024-08-10] MEDS: ALBUTEROL/IPRATROPIUM (Duoneb) RT SOL 3 ML NEBU INH ×3 (01:28→11:19)
[2024-08-10] MEDS: PHENYTOIN 100 MG/4 ML UDC GT ×2 (05:49→14:42)
[2024-08-10] MEDS: GABAPENTIN 300 MG CAPSULE GT ×2 (05:49→14:42)
[2024-08-10 06:28] LABS: Basophils % (Auto) 0 % (0-2.5); Eosinophils # (Auto) 0.1 Thou/mm3 (0.0-0.5); Eosinophils % (Auto) 2 % (0-10); Hematocrit 35.5 % (41.0-53.0); Hemoglobin 11.8 g/dL (13.5-16.0); Immature Granulocytes % (Auto) 0 % (0-0); Immature Granulocytes Auto 0.03 Thou/mm3 (0.00-0.00); Lymphocytes # (Auto) 1.2 Thou/mm3 (1.0-4.8); Lymphocytes % (Auto) 18 % (10-50); Mean Corpuscular HGB Conc 33.2 g/dl (31.0-37.0); Mean Corpuscular Hemoglobin 29.6 pg (25.0-35.0); Mean Corpuscular Volume 89 fL (80-100); Monocytes # (Auto) 0.8 Thou/mm3 (0.0-0.8); Monocytes % (Auto) 11 % (0-12); Neutrophils # (Auto) 4.6 Thou/mm3 (1.8-7.7); Neutrophils % (Auto) 68 % (37-80); Nucleated Red Blood Cell % 0 /100 WBC (0); Platelet Count 341 Thou/mm3 (140-440); RDW Standard Deviation 50.7 fL (35.1-43.9); Red Blood Count 3.99 Miln/mm3 (4.50-5.90); White Blood Count 6.8 Thou/mm3 (3.8-10.6)
[2024-08-10 06:57] LABS: Alanine Aminotransferase 24 U/L (10-49); Albumin, Serum 3.5 gm/dL (3.4-4.8); Albumin/Globulin Ratio 1.2 (1.2-2.2); Alkaline Phosphatase 171 U/L (46-116); Anion Gap 11 (7-16); Aspartate Amino Transferase 31 U/L (0-34); BUN/Creatinine Ratio 24 Ratio (12-20); Bilirubin,Total 0.2 mg/dL (0.3-1.2); Blood Urea Nitrogen 17 mg/dL (9-23); Calcium (Corrected) 9.4 mg/dL (8.5-10.1); Carbon Dioxide 28.4 mMol/L (20.0-31.0); Chloride 103 mMol/L (98-107); Creatinine (Component) 0.7 mg/dL (0.6-1.3); Glucose 163 mg/dL (74-106); Magnesium 2.3 mg/dL (1.6-2.6); Osmolality,Calculated 288 (275-295); Phosphorous 4.6 mg/dL (2.4-5.1); Potassium 3.1 mMol/L (3.4-5.1); Sodium 142 mMol/L (136-145); Total Protein 6.5 gm/dL (5.7-8.2); eGFR > 60 See Note
[2024-08-10] MEDS: ENOXAPARIN SOD INJ 40 MG/0.4 ML SYRINGE SC (09:38)
[2024-08-10] MEDS: TERAZOSIN HCL 1 MG CAPSULE 2 MG GT (09:38)
[2024-08-10] MEDS: ASPIRIN 81 MG CHEW GT (09:38)
[2024-08-10] MEDS: OXYBUTYNIN CHLOR 5 MG TABLET GT (09:39)
[2024-08-10] MEDS: OSELTAMIVIR 75 MG CAPSULE GT (09:39)
[2024-08-10] MEDS: FOLIC ACID 1 MG TABLET GT (09:39)
[2024-08-10] MEDS: amLODIPine BESYLATE 5 MG TABLET 10 MG GT (09:39)
[2024-08-10] MEDS: CARBIDOPA/LEVODOPA 10/100 MG TABLET 1 TAB GT (09:39)
[2024-08-10] MEDS: cefTRIAXone/D5w 1gm IV premix 1 GM/50 ML BAG IV (09:39)
[2024-08-10] MEDS: POTASSIUM CHLORIDE 10% 20 MEQ/15 ML UDC 40 MEQ GT (09:43)
[2024-08-10] MEDS: AZITHROMYCIN INJ 500 MG in SODIUM CHLORIDE 0.9% 250 ML 250 ML 250 MG IV (10:27)
--- NOTE | 2024-08-10 14:26 | PD.RESDS ---
Planned Discharge Date 08/10/24 DS: Providers Provider Date of admission: 08/09/24 03:42 Primary care physician: Benson Stringer MD ([facility]) Admitting Provider: Shria Dominguez MD Attending Provider on Admission: Patricio Siddiqi MD Consults: 08/09/24 03:51 Referral Registered Dietitian Urgent Comment: For GT feeding 08/09/24 08:00 Referral Infection Control Routine Comment: Reason for Infection Control Referral: Patient In Isolation Attending Provider on DC: Patricio Siddiqi MD Discharging Provider: Patricio Siddiqi MD Anticipated date of discharge: 08/10/24 DS: Diagnosis Problem List Completed Was Problem List Reviewed/Reconciled?: Yes Hospital Course Hospital Course Hospital course: Hospital course: Mr. Cruz is a 74-year-old male with past medical history of Parkinson's disease, hypertension, diabetes mellitus type 2, seizure disorder, multiple CVAs, A-fib, depression, on chronic G-tube was brought in by ambulance to ED from [facility] with chief complaint of worsening respiratory distress, and phlegm production for past couple of days. Patient tested positive for influenza A in the emergency department, chest x-ray was significant for early pneumonia, left base. Patient was started on Tamiflu and IV antibiotics, patient was requiring supplemental oxygen to maintain SpO2 greater than 92. Patient's home medications for Parkinson's and seizures were resumed. Patient does have history of atrial fibrillation documented but is not on any anticoagulation, patient's telemetry reviewed while inpatient showed sinus rhythm. With the progression of hospital course, patient's oxygen requirements declined further plan is to discharge patient back to residential facility on p.o. Augmentin and follow-up with primary care physician in 1 week. Patient to hold Reglan as it is contraindicated in Parkinson's disease and follow-up with PCP. Patient to continue all other home medications, patient must follow-up with primary care physician regarding elevated [id number] score and assess the need to be on anticoagulation. Otherwise patient is stable for discharge and responded well to hospital treatment. Discharge diagnosis: #Acute hypoxic respiratory failure secondary to #Influenza pneumonia #Early pneumonia left base #Parkinson's disease #History of multiple CVAs #Depression #Seizure disorder #Type 2 diabetes mellitus #Hypertension #Atrial fibrillation by history, not on any anticoagulation #Iron deficiency anemia, by history #Benign hypertrophy of prostate #Status post PEG tube feeding Case discussed with Attending Dr. Siddiqi and Dr. Dowling PGY3. Chente Alcaraz PGY1 Disclaimer: This note was dictated by speech recognition. Minor errors in casino cage manager may be present due to voice recognition software. I discussed with and supervised the editing intern physician who took care of this patient. I personally saw and examined the patient and discussed the assessment and plan with the entire medicine team, including my attending Dr. Devang SHINE. I agree with the assessment and plan as documented above. Abdulaziz Dowling M.D. Internal Medicine PGY-3 Time Spent with Patient Time attestation: Total time spent providing and/or coordinating discharge services: Time spent: Greater than 30 minutes Exam Vital Signs Temp Pulse Resp BP Pulse Ox O2 Del Method O2 Flow Rate 97.8 F 101 H 16 108/64 99 Nasal Cannula 1 08/10/24 11:25 08/10/24 12:00 08/10/24 11:25 08/10/24 11:25 08/10/24 11:25 08/10/24 11:08/10/24 11:25 Narrative Exam General: Elderly, nonverbal gentleman, no acute distress, spontaneously opening eyes HEENT: Moist mucous membranes, oropharynx clear Neck: Supple, No masses, No JVD CVS: S1S2 Regular rate and rhythm, No murmurs, rubs or gallops Lungs: Distant breath sounds throughout the lung field, no wheeze no rhonchi Abd: Soft, NT/ND, +BS, no organomegaly, PEG tube under clean dressing Ext: No edema, warm and well perfused Skin: No rash Psych: Unobtainable Discharge Plan Plan Patient Disposition: Xfer Skilled Nsg Fac (SNF) Patient condition on transfer: Stable Prescriptions/Referrals Prescriptions/Med Rec: New ferrous sulfate 325 mg (65 mg iron) Tablet,Delayed Release (Dr/Ec) 325 mg PO QOD 30 Days Qty: 15 0RF oseltamivir 75 mg Capsule 75 mg G-tube BID 4 Days Qty: 8 0RF amoxicillin-pot clavulanate [Augmentin ES-600] 600-42.9 mg/5 mL suspension for reconstitution 7.3 ml PO BID 5 Days Qty: 73 0RF Continued amlodipine [Norvasc] 10 MG tablet 10 mg Feeding Tube QDAY Qty: 0 Rx Instructions: hold and notify MD for SBP<100 or HR <100 gabapentin 300 MG capsule 300 mg Feeding Tube TID Qty: 0 melatonin 3 mg Tablet 3 mg Feeding Tube HS oxybutynin chloride 5 mg Tablet 5 mg Feeding Tube QDAY terazosin 2 mg Capsule 2 mg Feeding Tube HS Rx Instructions: hold for SBP<100 or HR <60 notify carbidopa-levodopa [Sinemet] 10-100 mg Tablet 1 tab Feeding Tube BID phenytoin 50 mg tablet,chewable 100 mg G-tube Q8H donepezil 5 mg tablet 5 mg feeding tube HS aspirin 81 mg tablet,chewable 81 mg feeding tube QDAY metformin 750 mg tablet extended release 24 hr 750 mg PO BID Rx Instructions: give via feeding tube bisacodyl [Dulcolax (bisacodyl)] 10 mg suppository 10 mg CO QDAY PRN (Reason: constipation) Rx Instructions: give if MOM ineffective multivitamin with minerals Capsule 1 cap PO QDAY Rx Instructions: give via feeding tube magnesium hydroxide [Dulcolax (magnesium hydroxide)] 400 mg/5 mL suspension 30 ml feeding tube Q48H PRN (Reason: constipation) Rx Instructions: give if no BM for 48 hours acetaminophen 325 mg tablet 650 mg feeding tube Q6H PRN (Reason: pain) Rx Instructions: pain rated 1-4 Enema 19-7 gram/118 mL enema 118 ml CO Q8HR PRN (Reason: constipation) Rx Instructions: give if MOM and dulcolax are ineffective insulin glargine [Basaglar KwikPen U-100 Insulin] 100 unit/mL (3 mL) insulin pen 36 unit SUBCUT HS Qty: 15 0RF Rx Instructions: hold is glucose <100 notify (DME) blood-glucose meter [facility] See Rx Instructions .Route Qty: 1 0RF Rx Instructions: As directed (DME) lancets [Accu-Chek Softclix Lancets] [facility] See Rx Instructions .Route Qty: 100 0RF Rx Instructions: As directed Held metoclopramide HCl 5 mg/5 mL solution 10 mg feeding tube BID Hold Instructions: Resume on 08/17/24. Referrals: Myke([facility])Benson MD [Primary Care Provider] - Patient/Caregiver Discharge Instructions Other Discharge Activity Instructions:: Continue Augmentin for five more days to complete anibioitic therapy for pneumonia Continue Tamiflu for four more days and iron tablets every other day for iron deficiency anemia. Hold Metoclopramide, follow up with PCP before resuming. Continue all other home medications. Follow up with PCP in 1 week. Return to ED if symptoms worsen. Other Discharge Diet Instructions: Tube Feeding Education Materials: Diabetes: Caring for Your Body, What Is Pneumonia?, ED Influenza (Adult) Print Language: Maltese Stand Alone Forms: [employer] Award Info., Patient Portal Info Letter Discharge Order Discharge Orders: Discharge (Routine); Ordered 08/10/24 Ordered By: Chente Alcaraz Quality Discharge Quality Measures VTE prophylaxis Attestestation MD Attestation I have examined the patient, reviewed labs and imaging findings, discussed the case with the resident(s), and reviewed entered orders. I agree with the plan of care as outlined in this note. Time Spent: [address] Devang MD
--- NOTE | 2024-08-10 15:55 | PC.SS ---
SS attempted to setup transportation through [facility] but member was not found. SS spoke to Dominique from [facility] and member was not found. SS spoke to different sales representative printing paper from [facility], Landen who states he does not have access to setup transport from patient's health insurance. Landen transferred call to Carmina a sales representative printing paper from [employer] to setup [facility] transportation. Estimated time is 3-4 hours. SS requested time of 5pm and [facility] with O2 during transportation. Ref# [id number]. Pt will return to [facility]. Bedside nurse, Janay is aware. MISSY, [facility] and [facility] are aware. Patient's son, Je is aware. Do from [facility] is aware. SS has sent patent's facesheet and ambulance form to [facility] using [employer] [facility]. SS spoke to Grace from [facility] and she has placed on will call list until [facility] contacts them.
== END 2024-08-10 18:00 | disposition skilled nursing facility (03) | DRG 193 ==
LOC: SERX 00:56 → SERHOLD 04:00 → S3SX 05:26 → S3NX 08-10 00:13
PROVIDERS: Student in an Organized Health Care Education/Training Program; Admitting Provider Student in an Organized Health Care Education/Training Program; Emergency Provider Emergency Medicine; PCP Hospitalist; Visit Provider Student in an Organized Health Care Education/Training Program
DX: J10.01 Influenza due to other identified influenza virus with the same other identified influenza virus pneumonia (principal); J96.01 Acute respiratory failure with hypoxia; J10.1 Influenza due to other identified influenza virus with other respiratory manifestations; G20.A1 Parkinson's disease without dyskinesia, without mention of fluctuations; I10 Essential (primary) hypertension; E11.9 Type 2 diabetes mellitus without complications; I48.91 Unspecified atrial fibrillation; F32.A Depression, unspecified; N40.0 Benign prostatic hyperplasia without lower urinary tract symptoms; D50.9 Iron deficiency anemia, unspecified; K21.9 Gastro-esophageal reflux disease without esophagitis; R56.9 Unspecified convulsions; Z66 Do not resuscitate; Z86.73 Personal history of transient ischemic attack (TIA), and cerebral infarction without residual deficits; Z93.1 Gastrostomy status; Z79.84 Long term (current) use of oral hypoglycemic drugs; Z79.82 Long term (current) use of aspirin; Z79.4 Long term (current) use of insulin; Z79.899 Other long term (current) drug therapy
CPT/HCPCS: 36415; 71045; 80053; 80061; 83036; 83735; 84100; 84443; 84484; 85025; 87081; 87400; 87502; 87811; 93005; 93225; 94640; 96365; 99285; A9270; J0360; J0456; J0696; J1650; J1815; J3475; J7050

== ENCOUNTER 2024-09-23 10:59 | Emergency (ER) | payer MEDICARE, MEDICAID, SELFPAY ==
[2024-09-23 11:04] VITALS: BP 170/70; PULSE 101; RESP 15; TEMP 36.6; O2SAT 95
[2024-09-23 11:05] VITALS: PULSE 100; RESP 16; O2SAT 99; BMI 26.6
--- NOTE | 2024-09-23 11:19 | XR_ITS ---
Examination: AP lateral soft tissue neck 2 views TECHNIQUE: AP lateral soft tissue neck 2 views Date and time: September 23, 2024 1143 hours INDICATIONS: Throat pain today. FINDINGS: No opaque foreign body in the soft tissue neck is noted No distention hypopharynx The epiglottis is not visualized IMPRESSION: Limited study No distention of the hypopharynx
--- NOTE | 2024-09-23 11:19 | XR_ITS ---
Examination: AP chest single view Technique one AP portable upright chest single view Date and time: September 23, 2024 1138 hours INDICATIONS: Coughing today. FINDINGS: Mild pneumonia in the right upper lobe Mild prominence left ventricle Moderate osteopenia IMPRESSION: Mild pneumonia right upper lobe, differential would include aspiration pneumonia
--- NOTE | 2024-09-23 11:20 | EKG_ITS ---
[facility] Test Date: 2024-09-23 Pat Name: ROGELIO GORE Department: Room: - Gender: Male [place]: : [id number] Requested By: Soren Keith Order Number: [id number] Reading MD: Soren Keith Measurements Intervals [place] Rate: 97 P: 63 MT: 184 QRS: -32 QRSD: 113 T: 117 QT: 370 QTc: 471 Interpretive Statements SINUS RHYTHM WITH FREQUENT VENTRICULAR PREMATURE COMPLEXES IN A BIGEMINAL PATTERN LEFT AXIS DEVIATION [QRS AXIS < -30] LEFT VENTRICULAR HYPERTROPHY AND ST-T CHANGE [VOLTAGE CRITERIA PLUS ST/T ABNORMALITY] POSSIBLE SEPTAL MYOCARDIAL INFARCTION , PROBABLY OLD [30 ms Q WAVE IN V1/V2] Compared to ECG 10/20/2022 15:32:53 ST (T wave) deviation now present Myocardial infarct finding now present Atrial fibrillation no longer present Aberrant conduction of supraventricular beat(s) no longer present T-wave abnormality no longer present Possible ischemia no longer present /store/S0/[id number]/[id number].pdf
--- NOTE | 2024-09-23 11:21 | PD.EDADULT ---
ED General RME/HPI General Chief complaint: Skin/Abscess/Foreign Body Stated complaint: AIRWAY OBSTRUCTION Time Seen by Provider: 09/23/24 11:04 Arrival date/time: 09/23/24 10:59 RME / HPI RME / HPI narrative: 74-year-old male patient with significant history of hypertension Parkinson's, multiple sclerosis, diabetes mellitus, nonverbal, [facility] foreign body aspiration. According to the EMS, patient possibly bit the tip of the suction. Which later on was noted to be gagging a lot. And coughing. Incident happened earlier today. Patient is nonverbal no other information can be extracted at this time. No fever noted in the ED. Related Data Home Medications ?Medication ?Instructions ?Recorded ?Confirmed amlodipine 10 mg tablet (Norvasc) 10 mg feeding tube QDAY #0 tabs 09/18/13 08/09/24 gabapentin 300 mg capsule 300 mg feeding tube TID #0 caps 04/01/17 08/09/24 carbidopa 10 mg-levodopa 100 mg 1 tab feeding tube BID 02/15/18 08/09/24 tablet (Sinemet) terazosin 2 mg capsule 2 mg feeding tube HS 02/15/18 08/09/24 melatonin 3 mg tablet 3 mg feeding tube HS 03/13/18 08/09/24 oxybutynin chloride 5 mg tablet 5 mg feeding tube QDAY 03/13/18 08/09/24 acetaminophen 325 mg tablet 650 mg feeding tube Q6H PRN pain 08/09/24 08/09/24 aspirin 81 mg chewable tablet 81 mg feeding tube QDAY 08/09/24 08/09/24 bisacodyl 10 mg rectal suppository 10 mg OR QDAY PRN constipation 08/09/24 08/09/24 (Dulcolax (bisacodyl)) donepezil 5 mg tablet 5 mg feeding tube HS 08/09/24 08/09/24 magnesium hydroxide 400 mg/5 mL 30 ml feeding tube Q48H PRN 08/09/24 08/09/24 oral suspension (Dulcolax constipation (magnesium hydroxide)) metformin 750 mg tablet,extended 750 mg PO BID 08/09/24 08/09/24 release 24 hr metoclopramide HCl 5 mg/5 mL oral 10 mg feeding tube BID 08/09/24 08/09/24 solution Held on 08/10/24. Instructions: Resume on 08/17/24. multivitamin with minerals 1 cap PO QDAY 08/09/24 08/09/24 phenytoin 50 mg chewable tablet 100 mg G-tube Q8H 08/09/24 08/09/24 sodium phosphates 19 gram-7 118 ml OR Q8HR PRN constipation 08/09/24 08/09/24 gram/118 mL enema (Enema) Previous Rx's ?Medication ?Instructions ?Recorded blood-glucose meter #1 ea 10/26/22 lancets (Accu-Chek Softclix #100 ea 10/26/22 Lancets) insulin glargine 100 unit/mL (3 36 unit (0.36 mL) subcut HS 08/10/24 mL) subcutaneous pen (Basaglar Hyperglycemia #15 mL KwikPen U-100 Insulin) levofloxacin 250 mg/10 mL oral 750 mg (30 mL) PO QDAY 7 days #210 09/23/24 solution mL Allergies Allergy/AdvReac Type Severity Reaction Status Date / Time No Known Drug Allergies Allergy Unknown Verified 03/13/18 10:36 Review of Systems Review of Systems Narrative Review of Systems: Review of system reviewed and within normal limits except mentioned in HPI ED Exam Narrative Physical exam: VITAL SIGNS: Reviewed. GENERAL APPEARANCE: Alert and good eye contact, nonverbal, does not follows commands, no acute distress, HEAD AND FACE: Non-traumatic. ENT: PERRL, pink conjunctivitis, eyelid no trauma, Mucous membrane moist. NECK: Supple, nontender, no nuchal rigidity. CHEST: No tenderness, no crepitus, no paradoxical movement, no retractions. LUNGS: Clear, well ventilated, symmetric,+ bibasal rales, no wheezing, no ronchi, no stridor, good breath sounds bilaterally. HEART: Regular rate, regular rhythm, no murmur, no gallops. ABDOMEN: Soft, positive bowel sounds, nondistended, no guarding, nontender, no rebound, no masses, PEG tube intact RECTAL: Deferred. GENITAL: Deferred. NEUROLOGICAL: Gross motor function intact sensory function intact, Appropriate for age. MUSCULOSKELETAL: low back nontender, full range of motion. EXTREMITIES: Nontender, full range of motion. SKIN: Color pink, dry, no rash, no lacerations, no abrasions, no contusions. LYMPHATICS: Deferred. Course Quality Measures none Orders Category Date Time Status EKG (ED ONLY) *Do not use* NOW Care 09/23/24 11:20 Completed EKG (ED Only) Stat Exams 09/23/24 11:20 Draft KUB [XR abdomen 1V] Stat Exams 09/23/24 15:09 Completed XR chest 1V Stat Exams 09/23/24 11:19 Completed XR soft tissue neck Stat Exams 09/23/24 11:19 Completed Blood Culture (Lab) Stat Lab 09/23/24 12:54 Received CBC Stat Lab 09/23/24 11:38 Completed Comprehensive Metabolic Panel Stat Lab 09/23/24 11:38 Completed Lactate (Lactic Acid) Stat Lab 09/23/24 12:54 Completed Lactate (Lactic Acid) Stat Lab 09/23/24 15:21 Completed Partial Thromboplastin Time Stat Lab 09/23/24 11:38 Completed Procalcitonin Stat Lab 09/23/24 12:54 Completed Troponin I Stat Lab 09/23/24 11:38 Completed Doxycycline Inj [Vibramycin Inj] 100 mg Med 09/23/24 12:31 Discontinued Sodium Chloride 0.9% (Pop) [NS 0.9% mini bag] 100 ml IV X1 Piper/Tazo 3.375 gm Premix [Zosyn] Med 09/23/24 12:31 Discontinued 3.375 gm in 50 ml IV X1 Vital Signs Vital signs: Vital Signs Temperature 97.9 F 09/23/24 11:04 Pulse Rate 101 H 09/23/24 11:04 Respiratory Rate 15 09/23/24 11:04 Blood Pressure 170/70 H 09/23/24 11:04 Pulse Oximetry (%) 95 09/23/24 11:04 Oxygen Delivery Method Nasal Cannula 09/23/24 11:04 Oxygen Flow Rate 2 09/23/24 11:04 Discharge Plan Plan Patient Disposition: HOME (Self Care) Discharge Disposition comment: Stable Prescriptions/Referrals Prescriptions/Med Rec: New levofloxacin 250 mg/10 mL solution 750 mg PO QDAY 7 Days Qty: 210 0RF No Action amlodipine [Norvasc] 10 MG tablet 10 mg Feeding Tube QDAY Qty: 0 Rx Instructions: hold and notify MD for SBP<100 or HR <100 gabapentin 300 MG capsule 300 mg Feeding Tube TID Qty: 0 melatonin 3 mg Tablet 3 mg Feeding Tube HS oxybutynin chloride 5 mg Tablet 5 mg Feeding Tube QDAY terazosin 2 mg Capsule 2 mg Feeding Tube HS Rx Instructions: hold for SBP<100 or HR <60 notify carbidopa-levodopa [Sinemet] 10-100 mg Tablet 1 tab Feeding Tube BID phenytoin 50 mg tablet,chewable 100 mg G-tube Q8H metoclopramide HCl 5 mg/5 mL solution 10 mg feeding tube BID donepezil 5 mg tablet 5 mg feeding tube HS aspirin 81 mg tablet,chewable 81 mg feeding tube QDAY metformin 750 mg tablet extended release 24 hr 750 mg PO BID Rx Instructions: give via feeding tube bisacodyl [Dulcolax (bisacodyl)] 10 mg suppository 10 mg OR QDAY PRN (Reason: constipation) Rx Instructions: give if MOM ineffective multivitamin with minerals Capsule 1 cap PO QDAY Rx Instructions: give via feeding tube magnesium hydroxide [Dulcolax (magnesium hydroxide)] 400 mg/5 mL suspension 30 ml feeding tube Q48H PRN (Reason: constipation) Rx Instructions: give if no BM for 48 hours acetaminophen 325 mg tablet 650 mg feeding tube Q6H PRN (Reason: pain) Rx Instructions: pain rated 1-4 Enema 19-7 gram/118 mL enema 118 ml OR Q8HR PRN (Reason: constipation) Rx Instructions: give if MOM and dulcolax are ineffective insulin glargine [Basaglar KwikPen U-100 Insulin] 100 unit/mL (3 mL) insulin pen 36 unit SUBCUT HS Qty: 15 0RF Rx Instructions: hold is glucose <100 notify (DME) blood-glucose meter Misc See Rx Instructions .Route Qty: 1 0RF Rx Instructions: As directed (DME) lancets [Accu-Chek Softclix Lancets] Misc See Rx Instructions .Route Qty: 100 0RF Rx Instructions: As directed Referrals: No Primary/Family,Physician [Primary Care Provider] - In 1 week Problem List Clinical Impression: Pneumonia Patient/Caregiver Discharge Instructions Discharge Activity: activity as tolerated Education Materials: What Is Pneumonia? Additional Instructions: Thank you for the opportunity for serving you today. You are stable for discharged back to the facility You are advised to: Follow-up with your PCP in 1 to 2 days Return to ED for worsening of symptoms Take medication as prescribed Print Language: Azeri Stand Alone Forms: [employer]ila Award Info., Patient Portal Info Letter MDM Narrative [facility] hospital course: 74-year-old male patient with significant history of hypertension Parkinson's, multiple sclerosis, diabetes mellitus, nonverbal, [facility] possible foreign body aspiration. According to the EMS, patient possibly bit the tip of the suction. Which later on was noted to be gagging a lot. And coughing. Incident happened earlier today. Patient is nonverbal no other information can be extracted at this time. No fever noted in the ED. Patient's workup is unremarkable except for slight elevation of lactic acid which is 3.1, repeat lactic acid 1.7. Troponin 0.057. EKG showed sinus rhythm, ventricular rate of 97 bpm, no ST segment elevation or depression today. Chest x-ray was noted to be Mild pneumonia right upper lobe, differential would include aspiration pneumonia X-ray of the abdomen came back with no foreign body noted. X-ray of the neck soft tissue came back with no foreign body noted. Was noted to be satting 94% on room air I discussed with the hospitalist, who examined the patient in the emergency room, Dr. Siddiqi , and told me that patient is safe to discharge Clinical Information Provided by EMS Medical Records Reviewed None Labs/Rad/Tests considered, not Ordered None Describe details: See results [facility] Medication Administration(s) Medication Administration History Discontinued Medications Piperacillin/Tazobactam/Dextrose (Zosyn) 3.375 gm in 50 mls @ 100 mls/hr IV X1 ONE Stop: 09/23/24 13:00 Last Infusion: 09/23/24 13:50 Dose: Infused Documented By: Admin: 09/23/24 13:21 Dose: 100 mls/hr Documented By: Doxycycline Hyclate 100 mg/ (Sodium Chloride) 100 mls @ 100 mls/hr IV X1 ONE Stop: 09/23/24 13:30 Last Admin: 09/23/24 13:47 Dose: 100 mls/hr Documented By: LISSA Diagnosis Differential diagnosis: Aspiration pneumonia, foreign body aspiration, sepsis Most likely dx, and/or detailed dx discussion: Pneumonia Dispositon Disposition: Nursing/Care
--- NOTE | 2024-09-23 11:41 | PC.NURSE ---
X-RAY AT BEDSIDE
[2024-09-23 11:59] LABS: Basophils % (Auto) 1 % (0-2.5); Eosinophils # (Auto) 0.4 Thou/mm3 (0.0-0.5); Eosinophils % (Auto) 4 % (0-10); Hemoglobin 12.3 g/dL (13.5-16.0); Immature Granulocytes % (Auto) 0 % (0-0); Immature Granulocytes Auto 0.03 Thou/mm3 (0.00-0.00); Lymphocytes # (Auto) 0.9 Thou/mm3 (1.0-4.8); Lymphocytes % (Auto) 11 % (10-50); Mean Corpuscular HGB Conc 35.1 g/dl (31.0-37.0); Mean Corpuscular Hemoglobin 29.9 pg (25.0-35.0); Mean Corpuscular Volume 85 fL (80-100); Monocytes # (Auto) 0.8 Thou/mm3 (0.0-0.8); Monocytes % (Auto) 10 % (0-12); Neutrophils # (Auto) 6.1 Thou/mm3 (1.8-7.7); Neutrophils % (Auto) 74 % (37-80); Nucleated Red Blood Cell % 0 /100 WBC (0); Platelet Count 183 Thou/mm3 (140-440); RDW Standard Deviation 47.9 fL (35.1-43.9); Red Blood Count 4.11 Miln/mm3 (4.50-5.90); White Blood Count 8.2 Thou/mm3 (3.8-10.6)
[2024-09-23 12:12] LABS: Partial Thromboplastin Time 29.6 Seconds (22.0-36.0)
[2024-09-23 12:30] LABS: Alanine Aminotransferase 76 U/L (10-49); Albumin, Serum 3.6 gm/dL (3.4-4.8); Albumin/Globulin Ratio 1.3 (1.2-2.2); Alkaline Phosphatase 248 U/L (46-116); Anion Gap 9 (7-16); BUN/Creatinine Ratio 34 Ratio (12-20); Bilirubin,Total 0.2 mg/dL (0.3-1.2); Blood Urea Nitrogen 24 mg/dL (9-23); Calcium 8.7 mg/dL (8.3-10.6); Carbon Dioxide 32.5 mMol/L (20.0-31.0); Chloride 101 mMol/L (98-107); Creatinine (Component) 0.7 mg/dL (0.6-1.3); Estimated Creatinine Clearance 78.1 mL/min (>60); Globulin 2.8 gm/dL (2.3-3.5); Glucose 158 mg/dL (74-106); Osmolality,Calculated 290 (275-295); Potassium 3.6 mMol/L (3.4-5.1); Sodium 142 mMol/L (136-145); Total Protein 6.4 gm/dL (5.7-8.2); eGFR > 60 See Note
[2024-09-23 12:36] LABS: Troponin I 0.057 ng/mL (0.0-0.045)
[2024-09-23 12:58] LABS: Lactate (Lactic Acid) 3.1 mMol/L (0.4-2.0)
[2024-09-23] MEDS: PIPER/TAZO 3.375 GM PREMIX 3.375 GM/50 ML BAG IV (13:21)
[2024-09-23 13:29] VITALS: BP 163/72; PULSE 87; RESP 20; TEMP 36.5; O2SAT 95
[2024-09-23 13:31] LABS: Procalcitonin 0.17 ng/ml (0.0-0.49)
[2024-09-23] MEDS: DOXYCYCLINE INJ 100 MG in SODIUM CHLORIDE 0.9% (POP) 100 ML IV (13:47)
--- NOTE | 2024-09-23 15:09 | XR_ITS ---
Examination: Abdomen AP single view Technique: AP portable supine abdomen, single view Exam date and time: September 23, 2024 1536 hours INDICATIONS: History ingested foreign body FINDINGS: No opaque foreign body noted Abundant stool in the right colon and rectosigmoid Gastrostomy tube overlies the stomach IMPRESSION: No opaque foreign body visualized
[2024-09-23 15:27] LABS: Lactate (Lactic Acid) 1.7 mMol/L (0.4-2.0)
[2024-09-23 15:56] LABS: Reflex Lactate? Y
[2024-09-23 16:27] VITALS: BP 157/82; PULSE 92; RESP 18; TEMP 37; O2SAT 94
--- NOTE | 2024-09-23 17:05 | PC.NURSE ---
PT INCONTINENT IF STOOL AND URINE. PT CLEANED UP AND NEW BRIEF APPLIED
--- NOTE | 2024-09-23 18:00 | PC.NURSE ---
REPORT GIVEN TO DIPTI AT [facility]
--- NOTE | 2024-09-23 18:06 | PC.CC ---
asw arranged transportation via [facility] [employer]. Attempted to use [facility] but Medicare does not cover transporation and pt is bed bound. An ALMITA was sigend and pt will be picked up at ETA 1900.
[2024-09-23 18:22] VITALS: BP 162/94; PULSE 91; RESP 17; TEMP 36.6; O2SAT 93
== END 2024-09-23 18:45 | disposition home or self-care (01) ==
PROVIDERS: Nurse Practitioner Family; Emergency Provider Emergency Medicine
DX: J18.9 Pneumonia, unspecified organism (principal); I11.9 Hypertensive heart disease without heart failure; I25.2 Old myocardial infarction; G20.A1 Parkinson's disease without dyskinesia, without mention of fluctuations; G35 Multiple sclerosis; E11.9 Type 2 diabetes mellitus without complications
CPT/HCPCS: 36415; 70360; 71045; 74018; 80053; 81001; 83605; 84145; 84484; 85025; 85730; 87040; 93005; 96365; 96367; 99284; J2543; J3490

== ENCOUNTER 2024-10-12 01:01 | Emergency (ER) | payer MEDICARE, MEDICAID, SELFPAY ==
[2024-10-12] VITALS (15 sets, daily range): BP systolic 127–165; BP diastolic 67–101; PULSE 45–84; RESP 11–23; TEMP 36.6–37; O2SAT 95–100; BMI 27.0
--- NOTE | 2024-10-12 02:39 | PD.EDNV ---
Nausea/Vomit./Diarrhea-RME/HPI General Chief complaint: Nausea/Vomiting/Diarrhea Stated complaint: VOMITING Time Seen by Provider: 10/12/24 02:43 Arrival date/time: 10/12/24 01:01 RME / HPI RME / HPI Narrative: Dr. Ritter?s Main ED Evaluation: 74yo male with a history of Parkinson's, dementra, multiple sclerosis, aFib, HTN, DM, GERD, BPH, PEG tube BIBA from [facility] presents to the ED for a chief complaint of vomiting. Per EMS, patient was sent over after SNF staff found the patient's abdomen distended, along with having a cough and one emetic episode. Patient is nonverbal. Full ROS is unobtainable due to the patient's history of dementia. Related Data Home Medications ?Medication ?Instructions ?Recorded ?Confirmed amlodipine 10 mg tablet (Norvasc) 10 mg feeding tube QDAY #0 tabs 09/18/13 08/09/24 gabapentin 300 mg capsule 300 mg feeding tube TID #0 caps 04/01/17 08/09/24 carbidopa 10 mg-levodopa 100 mg 1 tab feeding tube BID 02/15/18 08/09/24 tablet (Sinemet) terazosin 2 mg capsule 2 mg feeding tube HS 02/15/18 08/09/24 melatonin 3 mg tablet 3 mg feeding tube HS 03/13/18 08/09/24 oxybutynin chloride 5 mg tablet 5 mg feeding tube QDAY 03/13/18 08/09/24 acetaminophen 325 mg tablet 650 mg feeding tube Q6H PRN pain 08/09/24 08/09/24 aspirin 81 mg chewable tablet 81 mg feeding tube QDAY 08/09/24 08/09/24 bisacodyl 10 mg rectal suppository 10 mg KS QDAY PRN constipation 08/09/24 08/09/24 (Dulcolax (bisacodyl)) donepezil 5 mg tablet 5 mg feeding tube HS 08/09/24 08/09/24 magnesium hydroxide 400 mg/5 mL 30 ml feeding tube Q48H PRN 08/09/24 08/09/24 oral suspension (Dulcolax constipation (magnesium hydroxide)) metformin 750 mg tablet,extended 750 mg PO BID 08/09/24 08/09/24 release 24 hr metoclopramide HCl 5 mg/5 mL oral 10 mg feeding tube BID 08/09/24 08/09/24 solution Held on 08/10/24. Instructions: Resume on 08/17/24. multivitamin with minerals 1 cap PO QDAY 08/09/24 08/09/24 phenytoin 50 mg chewable tablet 100 mg G-tube Q8H 08/09/24 08/09/24 sodium phosphates 19 gram-7 118 ml KS Q8HR PRN constipation 08/09/24 08/09/24 gram/118 mL enema (Enema) Previous Rx's ?Medication ?Instructions ?Recorded blood-glucose meter #1 ea 10/26/22 lancets (Accu-Chek Softclix #100 ea 10/26/22 Lancets) insulin glargine 100 unit/mL (3 36 unit (0.36 mL) subcut HS 08/10/24 mL) subcutaneous pen (Basaglar Hyperglycemia #15 mL KwikPen U-100 Insulin) Allergies Allergy/AdvReac Type Severity Reaction Status Date / Time No Known Drug Allergies Allergy Unknown Verified 03/13/18 10:36 Review of Systems Review of Systems ROS Unobtainable: unobtainable due to medical condition ED Exam Narrative Physical exam: GEN. APPEARANCE: The patient is awake, nonverbal, not following commands, opens his eyes to his name, chronically ill appearing; appears to be decompensating. VITALS: All vitals were reviewed and the pulse ox is 98% on room air which is normal according to my interpretation. HEENT: Normocephalic, atraumatic. Pupils are equal and reactive. Oral mucosa is moist. Patent Nares NECK: Supple, nontender, no thyromegaly, no meningismus, no JVD CHEST: Symmetrical, atraumatic, and with equal expansion , Nontender on palpation no deformity and no crepitus. CARDIOVASCULAR: Heart regular rhythm no murmur or gallop rub or extra beats. LUNGS: Clear to auscultation bilaterally with symmetrical chest rise. No laboring tachypnea or wheezing. No intercostal subcostal retraction. No rales and no rhonchi. ABDOMEN: Soft, flat, nontender to palpation, no guarding or rebound tenderness. There are no abnormal masses palpated. Active and normal bowel sounds. EXTREMITIES: Nontender. No edema. No cyanosis. Patient has contractures of all 4 extremities. SKIN: Warm and dry, no jaundice or rashes noted. NEURO: Patient is WETZEL x 4, Cranial nerves II through XII grossly intact. There is no focal neurologic deficits noted. GCS is 15, PNS and ESCALATION ENGINEER appear grossly intact. PSYCHIATRIC: Patient is in normal mood and affect. Course Quality Measures none Orders Category Date Time Status Bedside COVID-19 Antigen Test NOW Care 10/12/24 02:45 Active Bedside Influenza A&B Antigen Test NOW Care 10/12/24 02:[address] Screening NOW Care 10/12/24 02:[address] abdomen pelvis w con Stat Exams 10/12/24 02:[address] head/brain wo con Stat Exams 10/12/24 02:45 Ordered CXR [XR chest 1V] Stat Exams 10/12/24 02:45 Taken Acetaminophen Stat Lab 10/12/24 03:18 Completed Ammonia Stat Lab 10/12/24 03:18 Completed CBC Stat Lab 10/12/24 03:18 Completed CMP [Comprehensive Metabolic Panel] Stat Lab 10/12/24 03:18 Completed Drug Screen,Urine Stat Lab 10/12/24 03:00 Completed INR [Prothrombin Time with INR] Stat Lab 10/12/24 03:18 Completed Salicylate Stat Lab 10/12/24 03:18 Completed T4 (Thyroxine) Stat Lab 10/12/24 03:18 Completed Thyroid Stimulating Hormone Stat Lab 10/12/24 03:18 Completed Troponin I Stat Lab 10/12/24 03:18 Completed UA, C/S IF [Urinalysis, C/S if Indicated] Stat Lab 10/12/24 03:00 Completed Urine Culture Stat Lab 10/12/24 03:00 Received cefTRIAXone/D5w 1gm IV premix [Rocephin/D5w 1gm IV Med 10/12/24 06:11 Ordered premix] 1 gm in 50 ml IV NOW Vital Signs Vital signs: Vital Signs Temperature 98.4 F 10/12/24 01:35 Pulse Rate 45 L 10/12/24 01:35 Respiratory Rate 17 10/12/24 01:35 Blood Pressure 150/69 H 10/12/24 01:35 Pulse Oximetry (%) 98 10/12/24 01:35 Oxygen Delivery Method Nasal Cannula 10/12/24 01:35 Nausea/Vomiting/Diarrhea MDM Narrative MDM Narrative:: Scribe Attestation: 10/12/24 - Lizbeth Amato am scribing for and in the presence of Dr. Ritter. Patient data External records reviewed:: [facility] previous records (Per chart review, patient was seen here on 09/23/24 for pneumonia.) and EMS form Clinical information provided by:: EMS Social determinants that could affect healthcare access:: housing (SNF resident) Patient has the following chronic illnesses:: Parkinson's, dementra, multiple sclerosis, aFib, HTN, DM, GERD, BPH How is presenting disease/condition affected by chronic disease/condition?: uneffected by Evaluation data The following diagnostics were reviewed and interpreted by me:: lab results and radiology exam(s) Lab and/or radiology exams considered but not ordered:: none Interpretation Summary: COVID positive, Influenza negative, WBC 13.0, Potassium 3.3, Glucose 145, Troponin normal, UA positive for UTI, Salicylates negative, UDS negative. CXR shows cephalization of the vessels, no consolidations, no effusions, no infiltrates, according to my interpretation. Medications / Prescriptions Medications / Prescriptions considered but not ordered:: none Medication administrations:: none Consultations Consultation(s) initiated? (list below): No Diagnosis Nausea Differential Diagnosis: gastroenteritis, dehydration and other (SBO, aspiration) Most likely diagnosis given after review of the tests above:: dx pending at signout Admission Indicated Admission indicated?: not indicated Admission Request Was there a request for admission?: No Disposition Plan Disposition Plan: other (specify) (Signed out to the next oncoming provider at [address] and CT abdomen pelvis.) Discharge Plan Prescriptions/Referrals Prescriptions/Med Rec: No Action amlodipine [Norvasc] 10 MG tablet 10 mg Feeding Tube QDAY Qty: 0 Rx Instructions: hold and notify MD for SBP<100 or HR <100 gabapentin 300 MG capsule 300 mg Feeding Tube TID Qty: 0 melatonin 3 mg Tablet 3 mg Feeding Tube HS oxybutynin chloride 5 mg Tablet 5 mg Feeding Tube QDAY terazosin 2 mg Capsule 2 mg Feeding Tube HS Rx Instructions: hold for SBP<100 or HR <60 notify carbidopa-levodopa [Sinemet] 10-100 mg Tablet 1 tab Feeding Tube BID phenytoin 50 mg tablet,chewable 100 mg G-tube Q8H metoclopramide HCl 5 mg/5 mL solution 10 mg feeding tube BID donepezil 5 mg tablet 5 mg feeding tube HS aspirin 81 mg tablet,chewable 81 mg feeding tube QDAY metformin 750 mg tablet extended release 24 hr 750 mg PO BID Rx Instructions: give via feeding tube bisacodyl [Dulcolax (bisacodyl)] 10 mg suppository 10 mg KS QDAY PRN (Reason: constipation) Rx Instructions: give if MOM ineffective multivitamin with minerals Capsule 1 cap PO QDAY Rx Instructions: give via feeding tube magnesium hydroxide [Dulcolax (magnesium hydroxide)] 400 mg/5 mL suspension 30 ml feeding tube Q48H PRN (Reason: constipation) Rx Instructions: give if no BM for 48 hours acetaminophen 325 mg tablet 650 mg feeding tube Q6H PRN (Reason: pain) Rx Instructions: pain rated 1-4 Enema 19-7 gram/118 mL enema 118 ml KS Q8HR PRN (Reason: constipation) Rx Instructions: give if MOM and dulcolax are ineffective insulin glargine [Basaglar KwikPen U-100 Insulin] 100 unit/mL (3 mL) insulin pen 36 unit SUBCUT HS Qty: 15 0RF Rx Instructions: hold is glucose <100 notify MD (DME) blood-glucose meter Misc See Rx Instructions .Route Qty: 1 0RF Rx Instructions: As directed (DME) lancets [Accu-Chek Softclix Lancets] Misc See Rx Instructions .Route Qty: 100 0RF Rx Instructions: As directed Referrals: No Primary/Family,Physician [Primary Care Provider] - In 1 week Problem List Clinical Impression: COVID, Vomiting Patient/Caregiver Discharge Instructions Print Language: Hungarian
--- NOTE | 2024-10-12 02:45 | XR_ITS ---
Examination: CT brain head without contrast. 2-D sagittal coronal reconstructions Date and time of exam:October 12, 2024, 0747 hours Comparison October 19, 2022. INDICATIONS: Altered mental status today. Prosper with positive patient CTDI: vol (mGy):57.9. DLP: (mGycm):1044. Technique: Multiple CT axial sections of the brain have been obtained, 5 mm slice thickness. Contrast has not been administered. 2-D sagittal, coronal reconstructions have been obtained Low dose protocols were performed. One or more of the following dose reduction techniques were used; automated exposure control, adjustment of the mA and/or KV according to patient size, use of iterative reconstruction technique. Findings: Mild ventricular enlargement. Again noted chronic subdural hygromas versus frontal temporal parietal lobe atrophy Intra-axial or extra-axial hemorrhage density is not seen. No mass effect or midline shift Basal cisterns are not remarkable. Fourth ventricle is midline. Cranial vault intact. Impression: Negative for acute hemorrhage, mass effect or midline shift As clinically warranted, if symptoms persist, consider brain MRI follow-up, stroke protocol
--- NOTE | 2024-10-12 02:45 | XR_ITS ---
Examination: AP chest single view TECHNIQUE: AP portable semiupright chest single view Date and time: October 12, 2024, 0317 hours Comparison October 23, 2024 INDICATIONS: Weakness vomiting today. FINDINGS: Mild opacity in both lungs, consider early pneumonia Reduced inspiratory effort. Minor prominence of the ventricle. Prominent osteopenia IMPRESSION: Mild opacity in both lungs, consider early pneumonia
--- NOTE | 2024-10-12 02:46 | XR_ITS ---
Examination: CT abdomen with intravenous contrast CT pelvis with intravenous contrast 2-D coronal reconstructions 2-D sagittal reconstructions Date and time of exam:October 12, 2024, 0749 hours Indications: Mid abdominal pain today CTDI: vol (mGy) 16.1 DLP: (mGycm) 1032 Technique: Multiple axial sections of the abdomen and pelvis have been obtained. 64 slice high-resolution scanner used. 3 mm axial sections have been obtained, post intravenous injection 60 cc Isovue 370 2-D sagittal, coronal reconstructions obtained. Low dose protocols were performed. One or more of the following dose reduction techniques were used; automated exposure control, adjustment of the mA and/or KV according to patient size, use of iterative reconstruction technique. Findings: Bibasilar pneumonia Cholelithiasis No focal liver or splenic lesion Gastrostomy tube in the stomach No renal or ureteral calculi, no hydronephrosis Air and stool distended colon Normal appendix Very large amounts of stool in the rectosigmoid Significant prostatomegaly transverse dimension 6 cm Urinary Mora catheter in a contracted urinary bladder Prominent osteopenia moderate disc narrowing posteriorly at L5-S1 IMPRESSION: Cholelithiasis, negative for cholecystitis Colonic ileus Very large amounts of stool in the rectosigmoid Significant prostatomegaly Urinary bladder contracted around a Mora catheter
[2024-10-12 03:37] LABS: Collection Type, Urine Catheter
[2024-10-12 03:42] LABS: Basophils # (Auto) 0.0 Thou/mm3 (0.0-0.2); Basophils % (Auto) 0 % (0-2.5); Eosinophils # (Auto) 0.1 Thou/mm3 (0.0-0.5); Eosinophils % (Auto) 1 % (0-10); Hematocrit 37.7 % (41.0-53.0); Hemoglobin 13.1 g/dL (13.5-16.0); Immature Granulocytes Auto 0.03 Thou/mm3 (0.00-0.00); Lymphocytes # (Auto) 1.4 Thou/mm3 (1.0-4.8); Lymphocytes % (Auto) 11 % (10-50); Mean Corpuscular HGB Conc 34.7 g/dl (31.0-37.0); Mean Corpuscular Hemoglobin 29.7 pg (25.0-35.0); Mean Corpuscular Volume 86 fL (80-100); Monocytes # (Auto) 0.9 Thou/mm3 (0.0-0.8); Monocytes % (Auto) 7 % (0-12); Neutrophils # (Auto) 10.4 Thou/mm3 (1.8-7.7); Neutrophils % (Auto) 81 % (37-80); Nucleated Red Blood Cell # 0.00 Thou/mm3 (0.00-0.00); Nucleated Red Blood Cell % 0 /100 WBC (0); Platelet Count 283 Thou/mm3 (140-440); RDW Standard Deviation 45.4 fL (35.1-43.9); Red Blood Count 4.41 Miln/mm3 (4.50-5.90); White Blood Count 13.0 Thou/mm3 (3.8-10.6)
[2024-10-12 03:48] LABS: RBC,Urine 4 /hpf (0-3); Squamous Epithelial Cell,Urine < 1 /hpf (0-5); Transitional Epi Cells,Urine 1 /hpf (0-5); WBC,Urine 35 /hpf (0-5)
[2024-10-12 03:50] LABS: Bilirubin,Urine Negative (Negative); Blood,Urine Negative (Negative); Clarity,Urine Clear (Clear/Hazy); Color,Urine Yellow (Lt Yel-Yel); Culture Indicated,Urine Yes; Glucose, Urine Negative (Negative); Ketones,Urine Negative (Negative); Leukocyte Esterase,Urine Positive (Negative); Nitrite,Urine Negative (Negative); PH,Urine 7.0 (5.0-7.0); Protein,Urine 2+ (Neg - Trace); Specific Gravity,Urine 1.022 (1.001-1.035); Urobilinogen,Urine 2.0 mg/dL (0.0-1.0)
[2024-10-12 04:01] LABS: Amphetamine/Methamp Scrn,U Negative (Negative); Barbiturate Screen,Urine Negative (Negative); Benzodiazepines Screen,Urine Negative (Negative); Benzoylecgonine Screen, Ur Negative (Negative); Fentanyl Screen,Urine Negative (Negative); Opiate Screen,Urine Negative (Negative); THC Screen,Urine Negative (Negative)
[2024-10-12 04:04] LABS: Ammonia 18 uMol/L (11-32)
[2024-10-12 04:06] LABS: INR 1.0 (0.9-1.3); Prothrombin Time 10.9 Seconds (9.0-12.2)
[2024-10-12 04:08] LABS: T4 (Thyroxine) 8.3 mcg/dL (4.5-10.9)
[2024-10-12 04:14] LABS: Acetaminophen < 2.0 mcg/mL (10.0-20.0); Alanine Aminotransferase 30 U/L (10-49); Albumin, Serum 3.6 gm/dL (3.4-4.8); Albumin/Globulin Ratio 1.1 (1.2-2.2); Alkaline Phosphatase 207 U/L (46-116); Anion Gap 8 (7-16); Aspartate Amino Transferase 32 U/L (0-34); BUN/Creatinine Ratio 33 Ratio (12-20); Bilirubin,Total 0.3 mg/dL (0.3-1.2); Blood Urea Nitrogen 20 mg/dL (9-23); Calcium 9.2 mg/dL (8.3-10.6); Calcium (Corrected) 9.5 mg/dL (8.5-10.1); Carbon Dioxide 29.4 mMol/L (20.0-31.0); Chloride 104 mMol/L (98-107); Creatinine (Component) 0.6 mg/dL (0.6-1.3); Globulin 3.2 gm/dL (2.3-3.5); Glucose 145 mg/dL (74-106); Osmolality,Calculated 286 (275-295); Potassium 3.3 mMol/L (3.4-5.1); Salicylate < 3.0 mg/dL; Sodium 141 mMol/L (136-145); Thyroid Stimulating Hormone 5.05 uIU/mL (0.55-4.78); Total Protein 6.8 gm/dL (5.7-8.2); Troponin I 0.043 ng/mL (0.0-0.045); eGFR > 60 See Note
--- NOTE | 2024-10-12 05:00 | PC.NURSE ---
aspirated from g tube and got 25cc of the feeding liquid he was on MASSOTHERAPIST.
[2024-10-12] MEDS: cefTRIAXone/D5w 1gm IV premix 1 GM/50 ML BAG IV (06:36)
[2024-10-12] MEDS: DEXTROSE 50%-WATER INJ 50 ML SYRINGE IVP ×2 (08:40→17:47)
--- NOTE | 2024-10-12 10:00 | PC.NURSE ---
PT'S PEG TUBE SITE CLEANED WITH NORMAL SALINE AND GAUZE; SITE REDRESSED WITH T-SPONGE GAUZE AND TAPED OVER.
--- NOTE | 2024-10-12 14:45 | PC.NURSE ---
PT HAD A LARGE BM. PT'S STOOL BROWN AND GREEN IN COLOR AND LOOSE IN QUALITY. PT GIVEN PERINEAL CARE WITH WARM BATH CLOTHS. PT PLACED IN NEW BRIEFS AND NEW CHUCKS PLACED UNDER PT AT THIS TIME.
--- NOTE | 2024-10-12 17:12 | PC.CC ---
DEVONTE Merritt arranged transportation via [facility] and [employer]. p/u eta 1800 or sooner.
--- NOTE | 2024-10-12 19:32 | PC.NURSE ---
SPOKE TO DELORISE NEURO OPHTHALMOLOGIST FOR SBAR REPORT AND INFORMED THAT PT IS STABLE TO GO BACK TO [facility] AND THAT PT IS TO BE TRANSPORTED BACK TO [facility] VIA AMBULANCE.
== END 2024-10-12 19:50 | disposition skilled nursing facility (03) ==
LOC: SERX 06:57 → SERHOLD 16:04
PROVIDERS: Emergency Medicine; Emergency Provider Emergency Medicine
DX: U07.1 COVID-19 (principal)
CPT/HCPCS: 51702; 36415; 70450; 71045; 74177; 80053; 80307; 80329; 81001; 82140; 84436; 84443; 84484; 85025; 85610; 87086; 87400; 87811; 96365; 96375; 96376; 99285; A4314; A4649; J0696; Q9967; G0480